=== PATIENT | male | born 2000 | race Two or more races ===

== ENCOUNTER 2024-04-25 14:17 | Emergency (ER) | payer MEDICAID, OTHER ==
[~2024-04-25] VITALS: Ht 188 cm; Wt 50.2 kg
[2024-04-25] MEDS ORDERED: CYCL-837 PO (16:38)
[2024-04-25] MEDS ORDERED: IBUP-1454 PO (16:38)
[2024-04-25 16:45] VITALS: BP 122/68; PULSE 81; RESP 18; TEMP 98.9; O2SAT 100
== END 2024-04-25 16:52 | disposition home or self-care (01) ==
LOC: ER 14:17
DX: S20.211A Contusion of right front wall of thorax, initial encounter (principal); M54.50 Low back pain, unspecified; R22.0 Localized swelling, mass and lump, head; V49.88XA Car occupant (driver) (passenger) injured in other specified transport accidents, initial encounter; Y93.I9 Activity, other involving external motion; Y92.488 Other paved roadways as the place of occurrence of the external cause; Y99.8 Other external cause status
CPT/HCPCS: 70450; 71046